=== PATIENT | female | born 1960 | race Caucasian/White ===

== ENCOUNTER 2022-04-17 14:17 | Outpatient (REF) | payer MEDICARE, MEDICAID, SELFPAY | END 2022-04-17 14:18 | disposition home or self-care (01) | LOC: HO.LNP 14:17 | PROVIDERS: Visit Provider Nurse Practitioner Family | DX: R30.0 Dysuria (principal) | CPT/HCPCS: 87086 ==

== ENCOUNTER 2022-12-09 09:49 | Emergency (ER) | payer OTHER, SELFPAY ==
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
[2022-12-09 09:53] VITALS: BP 140/98; PULSE 112; O2SAT 98
[2022-12-09 09:56] VITALS: BP 180/90; PULSE 90; RESP 18; TEMP 37.2; O2SAT 100; BMI 26.5
[2022-12-09] MEDS: Butalb/Acetamin/Caff 50/325/40 TABLET 1 TAB PO (10:55)
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
[2022-12-09 13:30] VITALS: BP 148/72; PULSE 80; RESP 18; O2SAT 100
== END 2022-12-09 13:32 | disposition home or self-care (01) ==
PROVIDERS: Emergency Provider Emergency Medicine Emergency Medical Services; PCP Family Medicine
DX: S09.90XA Unspecified injury of head, initial encounter (principal); M54.2 Cervicalgia; R51.9 Headache, unspecified; V43.52XA Car driver injured in collision with other type car in traffic accident, initial encounter; Y93.9 Activity, unspecified; Y92.410 Unspecified street and highway as the place of occurrence of the external cause; Y99.9 Unspecified external cause status
CPT/HCPCS: 70450; 72125; 99283